=== PATIENT | female | born 1985 | race Caucasian/White ===

== ENCOUNTER 2017-01-30 15:38 | Emergency (ER) | payer SELFPAY ==
[2017-01-30] MEDS ORDERED: MAG HYDROX/AL HYDROX/SIMETH SUSP 30 ML UDCUP PO ONE (17:30)
[2017-01-30] MEDS ORDERED: METOCLOPRAMIDE HCL ORAL SOLN 10 MG/10 ML UDCUP PO ONE (17:30)
[2017-01-30] MEDS ORDERED: LIDOCAINE 2% VISCOUS SOLN 20 ML UDCUP PO ONE (17:30)
--- NOTE | 2017-01-30 17:31 | ER Document Report ---
ED General - General Chief Complaint: Rib Pain Stated Complaint: LEFT RIB PAIN Mode of Arrival: Ambulatory Information source: Patient Notes: 32-year-old female presents with complaints of left upper quadrant abdominal pain worsened after eating. Patient denies any fevers or chills admits to mild nausea. Patient does not admit to any shortness of breath or chest pain, denies any pain with movement TRAVEL OUTSIDE OF THE [place] IN LAST 30 DAYS: No - HPI Onset: Just prior to arrival Onset/Duration: Sudden Quality of pain: Sharp Severity: Mild Pain Level: 1 Associated symptoms: Nausea Exacerbated by: Food Relieved by: Denies Similar symptoms previously: No Recently seen / treated by doctor: No - patient has history of gastric reflux - Related Data Allergies/Adverse Reactions: azithromycin [From Zithromax Z-Rigo] Allergy (Verified 01/30/17 16:06) Past Medical History - Social History Smoking Status: Never Smoker Cigarette use (# per day): No Chew tobacco use (# tins/day): No Smoking Education Provided: No Family History: Reviewed & Not Pertinent Renal/ Medical History: Denies: Hx Peritoneal Dialysis Psychiatric Medical History: Reports: Hx Anxiety - Immunizations Hx Diphtheria, Pertussis, Tetanus Vaccination: Yes Review of Systems - Review of Systems Notes: REVIEW OF SYSTEMS: CONSTITUTIONAL : Denies fever, chills, or sweats. Denies recent illness. EENT: Denies eye, ear, throat, or mouth pain or symptoms. Denies nasal or sinus congestion or discharge. Denies throat, tongue, or mouth swelling or difficulty swallowing. CARDIOVASCULAR: Denies chest pain. Denies palpitations or racing or irregular heart beat. Denies ankle edema. RESPIRATORY: Denies cough, cold, or chest congestion. Denies shortness of breath, difficulty breathing, or wheezing. GASTROINTESTINAL: Admits to abdominal pain left upper quadrant GENITOURINARY: Denies difficulty urinating, painful urination, burning, frequency, blood in urine, or discharge. FEMALE GENITOURINARY: Denies vaginal bleeding, heavy or abnormal periods, irregular periods. Denies vaginal discharge or odor. MUSCULOSKELETAL: Denies back or neck pain or stiffness. Denies joint pain or swelling. SKIN: Denies rash, lesions or sores. HEMATOLOGIC : Denies easy bruising or bleeding. LYMPHATIC: Denies swollen, enlarged glands. NEUROLOGICAL: Denies confusion or altered mental status. Denies passing out or loss of consciousness. Denies dizziness or lightheadedness. Denies headache. Denies weakness or paralysis or loss of use of either side. Denies problems with gait or speech. Denies sensory loss, numbness, or tingling. Denies seizures. PSYCHIATRIC: Denies anxiety or stress. Denies depression, suicidal ideation, or homicidal ideation. ALL OTHER SYSTEMS REVIEWED AND NEGATIVE. Dictation was performed using [employer] voice recognition software \ PHYSICAL EXAMINATION: GENERAL: Well-appearing, well-nourished and in no acute distress. HEAD: Atraumatic, normocephalic. EYES: Pupils equal round and reactive to light, extraocular movements intact, conjunctiva are normal. ENT: Nares patent, oropharynx clear without exudates. Moist mucous membranes. NECK: Normal range of motion, supple without lymphadenopathy LUNGS: Breath sounds clear to auscultation bilaterally and equal. No wheezes rales or rhonchi. HEART: Regular rate and rhythm without murmurs ABDOMEN: Soft, minimally tender in left upper quadrant on deep palpation no rebound or guarding. Female : deferred Musculoskeletal: Normal range of motion, no pitting or edema. No cyanosis. NEUROLOGICAL: Cranial nerves grossly intact. Normal speech, normal gait. Normal sensory, motor exams PSYCH: Normal mood, normal affect. SKIN: Warm, Dry, normal turgor, no rashes or lesions noted. Course - Re-evaluation Re-evalutation: 01/30/17 17:32 Patient has probable gastric reflux, GI cocktail ordered lab work pending 01/30/17 19:20 Given the pain is reproducible on palpation I do not believe this is cardiac or pulmonary in nature. Patient otherwise well-appearing in no distress vital signs are stable I will discharge home with GI follow-up After performing a Medical Screening Examination, I estimate there is LOW risk for ACUTE APPENDICITIS, BOWEL OBSTRUCTION, ACUTE CHOLECYSTITIS, PERFORATED DIVERTICULITIS, INCARCERATED HERNIA, PANCREATITIS, PELVIC INFLAMMATORY DISEASE, PERFORATED ULCER, ECTOPIC , or TUBO-OVARIAN ABSCESS, thus I consider the discharge disposition reasonable. Also, there is no evidence or peritonitis , sepsis, or toxicity. I have reevaluated this patient multiple times and no significant life threatening changes are noted. The patient and I have discussed the diagnosis and risks, and we agree with discharging home with close follow-up with the understanding that symptoms and presentations can change. We also discussed returning to the Emergency Department immediately if new or worsening symptoms occur. We have discussed the symptoms which are most concerning (e.g., bloody stool, fever, changing or worsening pain, vomiting) that necessitate immediate return. - Laboratory Result Diagrams: 01/30/17 17:48 01/30/17 17:48 Laboratory results interpreted by me: 01/30/17 01/30/17 17:48 17:48 Total Protein 8.4 H Urine Urobilinogen 2.0 H Ur Leukocyte Esterase SMALL H Discharge - Discharge Clinical Impression: Left upper quadrant abdominal pain of unknown etiology Condition: Stable Disposition: HOME, SELF-CARE Instructions: Abdominal Pain ([facility]) Prescriptions: Famotidine [Pepcid 20 mg Tablet] 20 mg PO DAILY #30 tablet Hydrocodone/Acetaminophen [[place] 5-325 mg Tablet] 1 tab PO Q6 #14 tablet Referrals: REJI HENDERSON MD [ACTIVE STAFF] - Follow up in 3-5 days
[2017-01-30 18:17] LABS: ABSOLUTE LYMPHOCYTES (AUTO) 1.7 10^3/uL (0.5-4.7); ABSOLUTE MONOCYTES (AUTO) 0.6 10^3/uL (0.1-1.4); ABSOLUTE NEUT (AUTO) 5.2 10^3/uL (1.7-8.2); BASOPHILS % (AUTO) 0.6 % (0-2); EOSINOPHILS % (AUTO) 0.3 % (0-6); HEMATOCRIT 41.4 % (36.0-47.0); HEMOGLOBIN 13.9 g/dL (12.0-15.5); HGB HCT DIFFERENCE 0.3; LYMPHOCYTES % (AUTO) 22.5 % (13-45); MEAN CORPUSCULAR HEMOGLOBIN 29.1 pg (27.0-33.4); MEAN CORPUSCULAR HGB CONC 33.4 g/dL (32.0-36.0); MEAN CORPUSCULAR VOLUME 87 fl (80-97); MONOCYTES % (AUTO) 7.8 % (3-13); RED BLOOD COUNT 4.76 10^6/uL (3.72-5.28); RED CELL DISTRIBUTION WIDTH 12.9 % (11.5-14.0); SEGMENTED NEUTROPHILS % (AUTO) 68.8 % (42-78); WHITE BLOOD COUNT 7.6 10^3/uL (4.0-10.5)
[2017-01-30 18:19] LABS: APPEARANCE,URINE CLEAR; BILIRUBIN,URINE NEGATIVE (NEGATIVE); GLUCOSE, URINE NEGATIVE (NEGATIVE); KETONES,URINE NEGATIVE (NEGATIVE); LEUKOCYTE ESTERASE,URINE SMALL (NEGATIVE); NITRITE,URINE NEGATIVE (NEGATIVE); PROTEIN,URINE NEGATIVE (NEGATIVE); URINE SPECIFIC GRAVITY 1.014
[2017-01-30 18:37] LABS: ALANINE AMINOTRANSFERASE 29 U/L (9-52); ALBUMIN 4.8 g/dL (3.5-5.0); ALKALINE PHOSPHATASE 78 U/L (38-126); ANION GAP 14 (5-19); ASPARTATE AMINO TRANSFERASE 22 U/L (14-36); BILIRUBIN,DIRECT 0.3 mg/dL (0.0-0.4); BILIRUBIN,TOTAL 0.7 mg/dL (0.2-1.3); BLOOD UREA NITROGEN 10 mg/dL (7-20); CARBON DIOXIDE 25 mmol/L (22-30); CHLORIDE 104 mmol/L (98-107); GLUCOSE 94 mg/dL (75-110); LIPASE 87.1 U/L (23-300); POTASSIUM 4.1 mmol/L (3.6-5.0); SODIUM 142.7 mmol/L (137-145); TOTAL PROTEIN 8.4 g/dL (6.3-8.2)
[2017-01-30 19:25] VITALS: BP 145/94
== END 2017-01-30 19:28 | disposition home or self-care (01) ==
LOC: ER 15:38
DX: R10.12 Left upper quadrant pain (principal); R07.81 Pleurodynia; R11.0 Nausea; Z88.3 Allergy status to other anti-infective agents
CPT/HCPCS: 99283; 36415; 83690; 85025; 81025; 80053; 81001; J3490

== ENCOUNTER → 2017-11-14 | Outpatient (CLI) | payer MEDICAID ==
--- NOTE | 2017-11-14 09:01 | RADIOLOGY REPORT (SQ) ---
EXAM DESCRIPTION: U/S ABDOMEN LIMITED W/O DOP COMPLETED DATE/TIME: 11/14/2017 8:45 am REASON FOR STUDY: LUQ PAIN (R10.12) R10.12 LEFT UPPER QUADRANT PAIN COMPARISON: None. TECHNIQUE: Dynamic and static grayscale images acquired of the abdomen and recorded on PACS. Additio nal selected color Doppler and spectral images recorded. LIMITATIONS: None. FINDINGS: LEFT KIDNEY: Left kidney is visualized measuring 11.5 cm in length. 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 No hydronephrosis identified. SPLEEN: The spleen measures 9.6 cm in length. Spleen demonstrates normal echogenicity. MISCELLANEOUS: In region of patient's point tenderness there is only active bowel identified. IMPRESSION: NORMAL LEFT UPPER QUADRANT ULTRASOUND. TECHNICAL DOCUMENTATION: JOB ID: [id number] [employer]- All Rights Reserved
== END ==
LOC: RAD 08:15
PROVIDERS: ATTEND Physician Assistant
DX: R10.12 Left upper quadrant pain (principal)
CPT/HCPCS: 76705

== ENCOUNTER → 2017-12-04 | Outpatient (CLI) | payer MEDICAID ==
--- NOTE | 2017-12-04 12:43 | RADIOLOGY REPORT (SQ) ---
EXAM DESCRIPTION: U/S NON-OB PELVIS TV W/O DOP COMPLETED DATE/TIME: 12/04/2017 10:27 am REASON FOR STUDY: N94.10 UNSPECIFIED DYSPAREUNIA N94.10 UNSPECIFIED DYSPAREUNIA COMPARISON: None. TECHNIQUE: Dynamic and static grayscale images acquired of the pelvis via transvaginal approach and recorded on PACS. Additional selected color Doppler and spectral images recorded. LIMITATIONS: None. FINDINGS: UTERUS: Contour normal. No mass. ENDOMETRIAL STRIPE: Node thickening. IUD in place. CERVIX: No nabothian cysts. RIGHT OVARY: No abnormal masses. RIGHT OVARY DOPPLER: Normal arterial vascular flow without evidence for torsion. LEFT OVARY: 2 cm cyst. LEFT OVARY DOPPLER: Normal arterial vascular flow without evidence for torsion. FREE FLUID: None noted. OTHER: No other significant finding. MEASUREMENTS: UTERUS: 8.4 x 5.4 x 4.4 cm ENDOMETRIAL STRIPE: IUD in position. RIGHT OVARY: 2.4 x 1.41.5 cm LEFT OVARY: 3.6 x 2.7 x 3.2 cm IMPRESSION: IUD in expected location. 2 cm left ovarian cyst. TECHNICAL DOCUMENTATION: JOB ID: [id number] [employer]- All Rights Reserved Reading location - IP/workstation name: [email or web address]
== END ==
LOC: RAD 13:41
PROVIDERS: ATTEND Physician Assistant
DX: N94.10 Unspecified dyspareunia (principal); N83.202 Unspecified ovarian cyst, left side; Z97.5 Presence of (intrauterine) contraceptive device
CPT/HCPCS: 76830

== ENCOUNTER → 2019-06-19 | Outpatient (CLI) | payer MEDICAID ==
--- NOTE | 2019-06-19 20:57 | XCELERA REPORT ---
[address] [address] Transthoracic Echocardiogram Report Name: APPLE STEWART Age: 34 yrs Gender: Female : 1985 Patient Status: Outpatient Patient Location: RAD Study Date: 06/19/2019 10:32 AM Height: 62 in Weight: 175 lb BSA: 1.8 m2 Procedure: A two-dimensional transthoracic echocardiogram with color flow and Doppler was performed. Study Quality: Fair. Reason For Study: PRIMARY HYPERTENSION History: PRIMARY HYPERTENSION. Ordering Physician: ABIODUN FLOOD Performed By: Dora Peters Interpretation Summary The left ventricle is normal in size. There is normal left ventricular wall thickness. LV EF is 65% Left ventricular systolic function is normal. Doppler measurements suggest normal left ventricular diastolic function The left ventricular wall motion is normal. There is no thrombus. There is no ventricular septal defect visualized. The right ventricle is normal in size and function. The right ventricular apex is not well visualized. The right atrium is normal. The left atrial size is normal. The interatrial septum is intact with no evidence for an atrial septal defect. There is no Doppler evidence for an interatrial shunt There is no evidence of mitral valve prolapse. There is no vegetation seen on the mitral valve. There is no mitral valve stenosis. There is no mitral regurgitation noted. There is no aortic valvular vegetation. There is no aortic valve stenosis There is no LVOT obstruction. No aortic regurgitation is present. There is no tricuspid stenosis. No tricuspid regurgitation. Unable to calculate RVSP due to lack of TR jet. There is no pulmonic valvular stenosis. There is a trace amount of pulmonic regurgitation The aortic root is normal size. The inferior vena cava appeared normal and decreased > 50% with respiration (RAP 5-10 mmHg) There is no pericardial effusion. MMode/2D Measurements & Calculations RVDd: 2.9 cm LVIDd: 4.4 cm FS: 30.3 % Ao root diam: 2.5 cm IVSd: 0.76 cm LVIDs: 3.1 cm EDV(Teich): Ao root area: LVPWd: 0.82 cm 87.2 ml 5.1 cm2 ESV(Teich): 36.7 ml EF(Teich): 58.0 % EDV(MOD-sp4): SV(MOD-sp4): 94.4 ml 60.9 ml ESV(MOD-sp4): 33.5 ml EF(MOD-sp4): 64.5 % Doppler Measurements & Calculations Ao V2 max: LV V1 max PG: PA V2 max: Pulm Sys Rito: 131.1 cm/sec 5.1 mmHg 117.9 cm/sec 55.7 cm/sec Ao max PG: LV V1 max: PA max PG: Pulm Mccann Rito: 6.9 mmHg 113.3 cm/sec 5.6 mmHg 34.6 cm/sec Pulm A Revs Rito: 27.4 cm/sec Pulm A Revs Dur: 0.08 sec Pulm S/D: 1.6 Left Ventricle The left ventricle is normal in size. There is normal left ventricular wall thickness. LV EF is 65%. Left ventricular systolic function is normal. Doppler measurements suggest normal left ventricular diastolic function. The left ventricular wall motion is normal. There is no thrombus. There is no ventricular septal defect visualized. Right Ventricle The right ventricle is normal in size and function. The right ventricular apex is not well visualized. Atria The right atrium is normal. The left atrial size is normal. The interatrial septum is intact with no evidence for an atrial septal defect. There is no Doppler evidence for an interatrial shunt. Mitral Valve There is no evidence of mitral valve prolapse. There is no vegetation seen on the mitral valve. There is no mitral valve stenosis. There is no mitral regurgitation noted. Aortic Valve There is no aortic valvular vegetation. There is no aortic valve stenosis. There is no LVOT obstruction. No aortic regurgitation is present. Tricuspid Valve There is no tricuspid stenosis. No tricuspid regurgitation. Unable to calculate RVSP due to lack of TR jet. Pulmonic Valve There is no pulmonic valvular stenosis. There is a trace amount of pulmonic regurgitation. Great Vessels The aortic root is normal size. The inferior vena cava appeared normal and decreased > 50% with respiration (RAP 5-10 mmHg). Effusions There is no pericardial effusion. : ABIODUN FLOOD Lakshmi
== END ==
LOC: RAD 10:17
PROVIDERS: ATTEND Physician Assistant
DX: I10 Essential (primary) hypertension (principal); I47.1 Supraventricular tachycardia
CPT/HCPCS: 93306

== ENCOUNTER 2020-06-01 22:27 | Emergency (ER) | payer MEDICAID ==
--- NOTE | 2020-06-01 23:13 | ER Document Report ---
ED Medical Screen (RME) - General Chief Complaint: Vomiting/Diarrhea Stated Complaint: VOMITING,DIARRHEA Primary Care Provider: DARRELL BELCHER PA-C [Primary Care Provider] - Follow up as needed Notes: Patient is a G2, P1 35-year-old white female at about 26 weeks gestation who presents the emergency department the chief complaint of upper abdominal discomfort. States that the cramping sensation. She states it was followed by nausea, generalized weakness and feeling just ill. States she is had no problems throughout . Denies any vaginal bleeding or discharge. Denies any urinary complaints. States she just has some upper abdominal cramping. No fevers chills or night sweats. I have treated and performed a rapid initial assessment of this patient. A comprehensive ED assessment and evaluation of the patient, analysis of test results and completion of medical decision making process will be conducted by additional ED providers. PHYSICAL EXAMINATION: GENERAL: Well-appearing, well-nourished and in no acute distress. A&Ox4. Answers questions appropriately. TRAVEL OUTSIDE OF THE [place] IN LAST 30 DAYS: No - Related Data Allergies/Adverse Reactions: azithromycin [From Zithromax Z-Rigo] Allergy (Verified 06/01/20 23:11) Past Medical History Renal/ Medical History: Denies: Hx Peritoneal Dialysis Psychiatric Medical History: Reports: Hx Anxiety - Immunizations Hx Diphtheria, Pertussis, Tetanus Vaccination: Yes Physical Exam - Vital signs Vitals: Temp Pulse Resp BP Pulse Ox 97.8 F 129 H 16 143/87 H 99 06/01/20 22:40 06/01/20 22:40 06/01/20 22:40 06/01/20 22:40 06/01/20 22:40 Course - Vital Signs Vital signs: Temp Pulse Resp BP Pulse Ox 97.8 F 129 H 16 143/87 H 99 06/01/20 22:40 06/01/20 22:40 06/01/20 22:40 06/01/20 22:40 06/01/20 22:40 Doctor's Discharge - Discharge Referrals: DARRELL BELCHER PA-C [Primary Care Provider] - Follow up as needed
[2020-06-02 00:17] LABS: ABSOLUTE LYMPHOCYTES (AUTO) 1.9 10^3/uL (0.5-4.7); ABSOLUTE MONOCYTES (AUTO) 0.7 10^3/uL (0.1-1.4); ABSOLUTE NEUT (AUTO) 12.9 10^3/uL (1.7-8.2); BASOPHILS % (AUTO) 0.3 % (0-2); EOSINOPHILS % (AUTO) 0.1 % (0-6); HEMATOCRIT 38.9 % (36.0-47.0); HEMOGLOBIN 13.1 g/dL (12.0-15.5); LYMPHOCYTES % (AUTO) 12.1 % (13-45); MEAN CORPUSCULAR HEMOGLOBIN 30.7 pg (27.0-33.4); MEAN CORPUSCULAR HGB CONC 33.7 g/dL (32.0-36.0); MEAN CORPUSCULAR VOLUME 91 fl (80-97); MONOCYTES % (AUTO) 4.7 % (3-13); PLATELET COUNT 312 10^3/uL (150-450); RED BLOOD COUNT 4.27 10^6/uL (3.72-5.28); RED CELL DISTRIBUTION WIDTH 14.1 % (11.5-14.0); SEGMENTED NEUTROPHILS % (AUTO) 82.8 % (42-78); TOTAL CELLS COUNTED % (AUTO) 100 %; WHITE BLOOD COUNT 15.6 10^3/uL (4.0-10.5)
[2020-06-02 00:45] LABS: ALBUMIN 3.6 g/dL (3.5-5.0); ALKALINE PHOSPHATASE 80 U/L (38-126); ANION GAP 8 (5-19); ASPARTATE AMINO TRANSFERASE 19 U/L (14-36); BILIRUBIN,DIRECT 0.2 mg/dL (0.0-0.4); BILIRUBIN,TOTAL 0.4 mg/dL (0.2-1.3); BLOOD UREA NITROGEN 10 mg/dL (7-20); CALCIUM 9.8 mg/dL (8.4-10.2); CARBON DIOXIDE 20 mmol/L (22-30); CHLORIDE 106 mmol/L (98-107); GLUCOSE 107 mg/dL (75-110); POTASSIUM 3.9 mmol/L (3.6-5.0)
[2020-06-02 01:03] LABS: APPEARANCE,URINE CLOUDY; BILIRUBIN,URINE SMALL (NEGATIVE); CALCIUM OXALATE CRYSTALS,URINE TOO NUMEROUS TO CNT /HPF; GLUCOSE, URINE NEGATIVE (NEGATIVE); KETONES,URINE TRACE mg/dL (NEGATIVE); PROTEIN,URINE 100 mg/dL (NEGATIVE); URINE SPECIFIC GRAVITY 1.031
[2020-06-02 01:05] LABS: COLOR,URINE DARK YELLOW
[2020-06-02 04:41] VITALS: BP 132/84
== END 2020-06-02 06:23 | disposition left against medical advice (07) ==
LOC: ER 22:27
DX: Z53.20 Procedure and treatment not carried out because of patient's decision for unspecified reasons (principal); O21.9 Vomiting of pregnancy, unspecified; O26.892 Other specified pregnancy related conditions, second trimester; R53.1 Weakness; R10.10 Upper abdominal pain, unspecified; Z3A.26 26 weeks gestation of pregnancy
CPT/HCPCS: 36415; 80053; 81001; 83690; 84702; 85025; 99281

== ENCOUNTER 2020-08-31 11:01 | Outpatient (CLI) | payer MEDICAID ==
--- NOTE | 2020-08-31 15:12 | RADIOLOGY REPORT (SQ) ---
EXAM DESCRIPTION: U/S PROFILE W/O STRESS IMAGES COMPLETED DATE/TIME: 08/31/2020 2:59 pm REASON FOR STUDY: decreased movment at 38 weeks COMPARISON: None. TECHNIQUE: Limited real-scale realtime and static images of the fetus to measure specified parameter s. LIMITATIONS: None. FINDINGS: HEART RATE: 150 beats per minute. LOWELL: 15.6 cm. LVP: 9.3 x 5.7 cm. BREATHING MOVEMENT: 2 points. MOVEMENT: 0 points. POSTURE AND TONE: 2 points. QUALITATIVE LOWELL: 2 points. OTHER: No other significant finding. IMPRESSION: BIOPHYSICAL PROFILE: 03/16. Trimester of : Third - 28 weeks to delivery COMMENT: BREATHING MOVEMENTS: 2 POINTS: PRESENT 0 POINTS: ABSENT MOTION: 2 POINTS: PRESENT 0 POINTS: ABSENT TONE: 2 POINTS: PRESENT 0 POINTS: ABSENT AMNIOTIC FLUID VOLUME: 2 POINTS: LARGEST POCKET GREATER THAN 2 CM DEPTH. 0 POINTS: NO POCKET OF 2 CM. TECHNICAL DOCUMENTATION: JOB ID: [id number] 2010 [employer]- All Rights Reserved Reading location - IP/workstation name: [email or web address]
== END 2020-08-31 15:20 | disposition home or self-care (01) ==
LOC: LC 11:01
PROVIDERS: ATTEND Obstetrics & Gynecology
DX: O36.8130 Decreased fetal movements, third trimester, not applicable or unspecified (principal); Z3A.38 38 weeks gestation of pregnancy; Z88.1 Allergy status to other antibiotic agents
CPT/HCPCS: 76819

== ENCOUNTER 2020-09-10 10:31 | Inpatient (IN) | payer MEDICAID ==
[2020-09-10 11:22] LABS: APPEARANCE,URINE SLIGHTLY-CLOUDY; BILIRUBIN,URINE NEGATIVE (NEGATIVE); COLOR,URINE YELLOW; GLUCOSE, URINE NEGATIVE (NEGATIVE); KETONES,URINE NEGATIVE (NEGATIVE); LEUKOCYTE ESTERASE,URINE LARGE (NEGATIVE); NITRITE,URINE NEGATIVE (NEGATIVE); PROTEIN,URINE NEGATIVE (NEGATIVE); URINE SPECIFIC GRAVITY 1.011; UROBILINOGEN,URINE NEGATIVE mg/dL (<2.0)
[2020-09-10 11:42] LABS: URINE AMPHETAMINES SCREEN NEGATIVE; URINE BARBITURATES SCREEN NEGATIVE; URINE BENZODIAZEPINES SCREEN NEGATIVE; URINE COCAINE SCREEN NEGATIVE; URINE MARIJUANA (THC) SCREEN NEGATIVE; URINE METHADONE SCREEN NEGATIVE; URINE PHENCYCLIDINE SCREEN NEGATIVE
[2020-09-10 11:46] LABS: UR PRO/CREAT RATIO RESULT 0.2 mg/mg (0.0-0.2); URINE CREATININE 50.7 mg/dL (16-327); URINE PROTEIN 10.7 mg/dL (<12)
--- NOTE | 2020-09-10 11:46 | Admission Physical ---
Datetime Report Generated by CPN: 09/10/2020 11:46 CURRENT ADMISSION Chief Complaint: Sent from OB Office for Evaluation and Treatment - Please Specify Indication for Induction: Gestational HTN Admit Impression : Term, Intrauterine ; No Active Labor Admit Plan: Initiate Labor Induction Protocol Admit Plan- Other: +GBS ALLERGIES Medication Allergies: Yes Medication Allergies: azithromycin (08/31/2020) Latex: No Latex Allergies Food Allergies: None Environmental Allergies: None OBSTETRICAL HISTORY : 2 Para: 1 Term: 1 : 0 SAB: 0 IAB: 0 Ectopic: 0 Livin Cesareans: 0 VBACs: 0 Multiple Births: 0 Gestational Diabetes: No Rh Sensitization: No Incompetent Cervix: No DICK: No Infertility: No ART Treatment: No Uterine Anomaly: No IUGR: No Hx Previous C/S: No Macrosomia: No Hx Loss/Stillborn: No PIH: No Hx : No Placenta Previa/Abruption: No Depression/PP Depression: No PTL/PROM: No Post Hemorrhage: No Current Procedures: Ultrasound; NST Obstetrical History Comments: G1- 2006, Vaginal delivery G2- Current SEE RECORDS Alcohol: No Marijuana : No Cocaine: No Other Illicit Drugs: No Cigarettes: Former Smoker. 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: No Heart Disease: No Hosp/Surgery: Yes Autoimmune Disorder: No Anesthetic Complications: No Kidney Disease: No Abnormal Pap Smear: Yes Neuro/Epilepsy: No Psychiatric Disorders: No Other Medical Diseases: No Hepatitis/Liver Disease: No Significant Family History: No Varicosities/Phlebitis: No Trauma/Violence : No Thyroid Dysfunction: No Medical History Comments: Child , LEEP 1.5 years ago INFECTIOUS HISTORY Gonorrhea: No Genital Herpes: Yes Chlamydia: No Tuberculosis: No Syphilis: No Hepatitis: No HIV/AIDS Exposure: No Rash or Viral Illness: No HPV: No Infectious History Comments: Last HSV outbreak was at some point this year. Pt unsure of date PHYSICAL EXAM General: Normal HEENT: Deferred Neurologic: Normal Thyroid: Deferred Heart: Normal Lungs: Normal Breast: Deferred Back: Deferred Abdomen: Normal Genitourinary Exam: Deferred Extremities: Deferred DTRs: Normal Pelvic Type: Not Done Physical Exam Comments: cervix 3/90/0 at [facility] Vital Signs: Reviewed MEMBRANES Membranes: Intact FETUS A FHR- Baseline: 150 Variability: Moderate 6-25bpm Accelerations: 15X15 Decelerations: None FHR Category: Category I Admit Comment: 40.1 sent from [facility] today with bps elevated. GBS + denies h/a, vision changes DTRs normal Plan IOL, Dr. Eric attending aware PLANS FOR LABOR AND DELIVERY Pain Management: Medications; Local Feeding Preference: Breast Benefit of Breast Feed Discussed: Yes Circumcision: N/A INFORMED CONSENT Assignment: Lisa Eric MD Signature: with User ID: [email or web address] : with User ID: [email or web address]
[2020-09-10 11:54] LABS: HEMATOCRIT 35.9 % (36.0-47.0); HEMOGLOBIN 12.2 g/dL (12.0-15.5); MEAN CORPUSCULAR HGB CONC 34.1 g/dL (32.0-36.0); MEAN CORPUSCULAR VOLUME 91 fl (80-97); PLATELET COUNT 265 10^3/uL (150-450); RED BLOOD COUNT 3.95 10^6/uL (3.72-5.28); RED CELL DISTRIBUTION WIDTH 14.2 % (11.5-14.0); WHITE BLOOD COUNT 9.2 10^3/uL (4.0-10.5)
[2020-09-10] MEDS ORDERED: RINGERS SOLUTION,LACTATED 1,000 ML IV ONE (12:11)
[2020-09-10] MEDS ORDERED: RINGERS SOLUTION,LACTATED 1,000 ML IV PRN (12:11)
[2020-09-10 12:17] LABS: ALBUMIN 3.8 g/dL (3.5-5.0); ALKALINE PHOSPHATASE 161 U/L (38-126); ANION GAP 7 (5-19); ASPARTATE AMINO TRANSFERASE 21 U/L (14-36); BILIRUBIN,DIRECT 0.2 mg/dL (0.0-0.4); BILIRUBIN,TOTAL 0.5 mg/dL (0.2-1.3); BLOOD UREA NITROGEN 7 mg/dL (7-20); CALCIUM 9.5 mg/dL (8.4-10.2); CARBON DIOXIDE 24 mmol/L (22-30); CHLORIDE 105 mmol/L (98-107); GLUCOSE 85 mg/dL (75-110); POTASSIUM 4.3 mmol/L (3.6-5.0); TOTAL PROTEIN 7.6 g/dL (6.3-8.2); URIC ACID 3.9 mg/dL (2.5-6.2)
[2020-09-10] MEDS ORDERED: PENICILLIN G POTASSIUM 5,000,000 UNIT in DEXTROSE 5%-WATER 100 ML IV ONE (12:17)
[2020-09-10] MEDS ORDERED: LIDOCAINE 1% INJ-PF (10 MG/ML) 30 ML SDV ONE (12:25)
[2020-09-10] MEDS ORDERED: OXYTOCIN/0.9 % SODIUM CHLORIDE 30 UNIT/500 ML RTUINJ ONE (12:25)
[2020-09-10] MEDS ORDERED: MISOPROSTOL 0.2 MG TABLET ONE (12:25)
[2020-09-10] MEDS ORDERED: OXYTOCIN 10 UNIT/ML VIAL ONE (12:25)
[2020-09-10] MEDS ORDERED: PENICILLIN G-K 5 MILLION UNIT VIAL ONE (12:26)
[2020-09-10] MEDS ORDERED: FAMOTIDINE 20 MG TABLET ONE (14:07)
[2020-09-10] MEDS ORDERED: MAGNESIUM SULFATE 0 GM/0 ML RTUINJ IV ONE (14:25)
[2020-09-10] MEDS: FAMOTIDINE 20 MG TABLET PO SCH ×2 (14:49→22:15)
[2020-09-10] MEDS ORDERED: OXYTOCIN/0.9 % SODIUM CHLORIDE 30 UNIT/500 ML RTUINJ IV PRN (14:51)
[2020-09-10] MEDS: PENICILLIN G POTASSIUM 2,500,000 UNIT in DEXTROSE 5%-WATER 50 ML IV SCH ×2 (20:58→20:59)
[2020-09-11] MEDS ORDERED: MISOPROSTOL 0.1 MG TABLET ONE ×2 (00:03→04:10)
[2020-09-11] MEDS: PENICILLIN G POTASSIUM 2,500,000 UNIT in DEXTROSE 5%-WATER 50 ML IV SCH ×3 (00:54→08:59)
[2020-09-11] MEDS ORDERED: MAG HYDROX/AL HYDROX/SIMETH SUSP 30 ML UDCUP ONE (02:16)
[2020-09-11] MEDS ORDERED: MAG HYDROX/AL HYDROX/SIMETH SUSP 30 ML UDCUP PO ONE (02:45)
[2020-09-11] MEDS ORDERED: EPHEDRINE SULFATE INJ 50 MG/1 ML AMPULE ONE (10:39)
[2020-09-11] MEDS ORDERED: FENTANYL/BUPIVACAINE/NS/PF 300 MCG/150 ML RTUINJ EPI ONE (10:39)
[2020-09-11] MEDS ORDERED: ROPIVACAINE HCL 0.2% INJ/PF (2 MG/ML) 20 ML SDV ONE (10:39)
[2020-09-11] MEDS ORDERED: OXYTOCIN/0.9 % SODIUM CHLORIDE 30 UNIT/500 ML RTUINJ ONE (11:10)
[2020-09-11] MEDS ORDERED: PROMETHAZINE HCL INJ 25 MG/1 ML VIAL IV PRN (11:57)
[2020-09-11] MEDS ORDERED: PROMETHAZINE HCL 25 MG TABLET PO PRN (11:57)
[2020-09-11] MEDS ORDERED: DIBUCAINE 1% OINTMENT 28 GM TP PRN (11:57)
[2020-09-11] MEDS ORDERED: NA PHOS,M-B/NA PHOS,DI-BA (ADULT) 133 ML ENEMA PR PRN (11:57)
[2020-09-11] MEDS ORDERED: PROMETHAZINE HCL 25 MG SUPP.RECT PR PRN (11:57)
[2020-09-11] MEDS ORDERED: PSEUDOEPHEDRINE HCL 30 MG TABLET PO PRN (11:57)
[2020-09-11] MEDS ORDERED: OXYTOCIN/0.9 % SODIUM CHLORIDE 30 UNIT/500 ML RTUINJ IV PRN (11:57)
[2020-09-11] MEDS ORDERED: DIPHENHYDRAMINE HCL 25 MG CAPSULE PO PRN (11:57)
[2020-09-11] MEDS ORDERED: MAGNESIUM HYDROXIDE SUSP 30 ML UDCUP PO PRN (11:57)
[2020-09-11] MEDS ORDERED: BENZOCAINE/MENTHOL AEROSOL SPRAY 56 ML TOP PRN (11:57)
[2020-09-11] MEDS ORDERED: GLYCERIN/WITCH HAZEL LEAF 1 EACH MED..WIPE TP PRN (11:57)
[2020-09-11] MEDS ORDERED: DIPH/PERTUSS(ACELL)/TETANUS VAC/PF 0.5 ML SYR (>=10YO) IM PRN (11:57)
[2020-09-11] MEDS ORDERED: MEASLES,MUMPS&RUBELLA VACC/PF 0.5 ML VIAL SUBCUT PRN (11:57)
[2020-09-11] MEDS ORDERED: ACETAMINOPHEN WITH CODEINE #3 TABLET PO PRN ×2 (11:57)
[2020-09-11] MEDS ORDERED: ZOLPIDEM TARTRATE 5 MG TABLET PO PRN (11:57)
[2020-09-11] MEDS ORDERED: ACETAMINOPHEN 650 MG SUPP.RECT PR PRN (11:57)
--- NOTE | 2020-09-11 13:19 | Birth Certificate Data ---
Cert Data Datetime Report Generated by CPN: 09/11/2020 13:18 CERTIFICATE DATA Delivery Provider: Lori Rodriguez MD (09/10/2020 10:56:Paris Girard RN) 47a. Care: Yes (09/10/2020 10:56:Ruben Smith RN) 47b. Date of First Visit: 01/30/2020 00:00 (09/10/2020 10:56:Ruben Smith RN) 47c. Date of Last Visit: 09/10/2020 00:00 (09/10/2020 10:56:Ruben Smith RN) 47d. Number of Visits: 13 (09/10/2020 10:56:Ruben Smith RN) 48a. Number of Prev Live Births: 1 (09/10/2020 10:56:Ruben Smith RN) 48b. Now Livin (09/10/2020 10:56:Ruben Smith RN) 48c. Live Births Now : 0 (09/10/2020 10:56:QS system process) 48d. Date of Last Live : 11/24/2006 00:00 (09/10/2020 10:56:Ruben Smith RN) 48e. Losses: 0 (09/10/2020 10:56:Ruben Smith RN) RISK FACTORS IN THIS 49a. Diabetes: No (09/10/2020 10:56:Ruben Smith RN) 49b. Hypertension: No (09/10/2020 10:56:Ruben Smith RN) 49c. Previous Births: 0 (09/10/2020 10:56:Ruben Smith RN) 49d. Stillborns: No (09/10/2020 10:56:Ruben Smith RN) 49d. IUGR: No (09/10/2020 10:56:Ruben Smith RN) 49e. Infertility Treatment: No (09/10/2020 10:56:Ruben Smith RN) 49f. Previous Cesareans: 0 (09/10/2020 10:56:Ruben Smith RN) Mother's Height 50b. Height Inches: 62 (09/10/2020 11:16:QS system process) Mother's Weight 51a. Pre- Weight (lbs): 199 (09/10/2020 10:56:Ruben Smith RN) 51b. Weight at Delivery (lbs): 227 (09/10/2020 11:16:QS system process) 52. Dt Last Normal Menses Began: 11/23/2019 00:00 (09/10/2020 10:56:Ruben Smith RN) Infections Present/Treated 53a. Gonorrhea: No (09/10/2020 10:56:Ruben Smith RN) Results this Hospital Visit : Negative (09/10/2020 10:56:Vikki Lawton RN) 53b. Syphilis: No (09/10/2020 10:56:Ruben Smith RN) Results this Hospital Visit: NONREACTIVE (09/10/2020 13:59:QS system process) 53c. Chlamydia: No (09/10/2020 10:56:Ruben Smith RN) Results this Hospital Visit: Negative (09/10/2020 10:56:Vikki Lawton RN) 53d. Hepatitis B: No (09/10/2020 10:56:Ruben Smith RN) Results this Hospital Visit: Negative (09/10/2020 10:56:Ruben Smith RN) 53e. Hepatitis C: Negative (09/10/2020 10:56:Vikki Lawton RN) 53h. Mother Tested for HBsAG: Yes (09/10/2020 10:56:Vikki Lawton RN) 53i. Date Tested: 01/30/2020 00:00 (09/10/2020 10:56:Vikki Lawton RN) 53j. Test Result: Negative (09/10/2020 10:56:Ruben Smith RN) Obstetric Procedures 54a, b, c. Obstetric Procedures: Ultrasound; NST (09/10/2020 10:56:Ruben Smith RN) Cigarette Smoking Cigarette Smoking: Former Smoker. [id number] (09/10/2020 10:56:Ruben Smith RN) 55a. 3 Months Before Preg - Ci (09/10/2020 10:56:Ruben Smith RN) 55a. Packs: 0 (09/10/2020 10:56:Ruben Smith RN) 55b. 1st Trimester of Preg- Ci (09/10/2020 10:56:Ruben Smith RN) 55b. Packs: 0 (09/10/2020 10:56:Ruben Smith RN) 55c. 2nd Trimester of Preg- Ci (09/10/2020 10:56:Ruben Smith RN) 55c. Packs: 0 (09/10/2020 10:56:Ruben Smtih RN) 55d. 3rd Trimester of Preg- Ci (09/10/2020 10:56:Ruben Smith RN) 55d. Packs: 0 (09/10/2020 10:56:Ruben Smith RN) Onset of Labor 56a. PROM >12 Hrs: 1.55 (09/10/2020 10:56:QS system process) 56b. Precipitous Labor <3 Hrs: 2 (09/10/2020 10:56:QS system process) 56c. Prolonged Labor > 20 Hrs: 2 (09/10/2020 10:56:QS system process) 57a. Induction of Labor: N/A (09/10/2020 10:56:Mile Miles RN) 57a. Induction of Labor: Cytotec @ (09/11/2020 04:15:Mile Miles RN) 57c. Non-Vertex Presentation A: Vertex (09/10/2020 10:56:Paris Girard RN) 57d. Steroids - Lung Mat: None (09/10/2020 10:56:Paris Girard RN) 57d. Steroids - Lung Mat: Not Applicable (09/10/2020 10:56:Paris Girard RN) 57e. Antibiotics During Labor: 09/11/2020 08:59 (09/10/2020 10:56:Mile Miles RN) 57f. Mat Ch[place] or Temp >100.4: 98.5 (09/10/2020 10:56:Paris Girard RN) 57g. Moderate/Heavy Meconium: Clear (09/11/2020 10:06:Mile Miles RN) 57h. Intolerance of Labor: N/A (09/10/2020 10:56:Paris Girard RN) : N/A (09/10/2020 10:56:Paris Girard RN) 57i. Epidural/Spinal Anesthesia: Epidural (09/10/2020 10:56:Paris Girard RN) Method of Delivery 58a. Forceps - Unsuccessful A: N/A (09/10/2020 10:56:Paris Girard RN) 58b. Vacuum - Unsuccessful A: N/A (09/10/2020 10:56:Paris Girard RN) 58c. Presentation at 58c. Presentation at - A : Vertex (09/10/2020 10:56:Paris Girard RN) 58c. Presentation at - A : N/A (09/10/2020 10:56:Paris Girard RN) 58c. Presentation at - A : Cephalic (09/10/2020 10:56:Paris Girard RN) Final Route and Method of Del 58d. Baby A Route/Delivery: Vaginal (09/10/2020 10:56:Paris Girard RN) 58e. Trial of Labor Attempted: No (09/10/2020 10:56:Paris Girard RN) 58e. Trial of Labor Attempted A: N/A (09/10/2020 10:56:Paris Girard RN) 58e. Trial of Labor Attempted B: N/A (09/10/2020 10:56:Paris [place], RN) Maternal Morbidity 59b. 3rd or 4th Degree Lacs: Perineal; Periurethral (09/10/2020 10:56:Paris Girard RN) 59b. 3rd or 4th Degree Lacs: R labial (09/10/2020 10:56:[place] Girard RN) Birthweight Baby A: 3491 (09/10/2020 10:56:Mile Miles RN) 60a. Pounds : 7 (09/10/2020 10:56:QS system process) 60b. Ounces: 11 (09/10/2020 10:56:QS system process) 61. GA at Delivery Baby A: 40.2 (09/10/2020 10:56:Paris Girard RN) : Full Term- 39- 40.6 Weeks (09/10/2020 10:56:QS system process) 62a. 5 Minute Baby A: 9 (09/10/2020 10:56:QS system process)
--- NOTE | 2020-09-11 13:19 | Delivery Summary ---
Del Sum A-C Datetime Report Generated by CPN: 09/11/2020 13:18 DELIVERY PERSONNEL DELIVERY PERSONNEL: [id number] Delivery Doctor:: Lori Rodriguez MD Labor and Delivery Nurse:: Mile Miles RNpublic space attendant Nurse:: Paris Girard RN Nursery Nurse:: Vikki Lawton RNC MATERNAL INFORMATION Delivery Anesthesia: Epidural Medications After Delivery: Pitocin 30 Units in 500ml NS/D5W Estimated Blood Loss (ml): 150 Maternal Complications: Precipitous Labor (<3hrs) LABOR SUMMARY EDC: 09/09/2020 00:00 No. Babies in Womb: 1 Attempted: No Labor Anesthesia: Epidural LABOR INFORMATION Reason for Induction: Chronic Primary/Essential HTN Onset of Labor: 09/11/2020 09:24 Complete Dilatation: 09/11/2020 11:20 Cervical Ripening Agents: Cytotec @ Oxytocin: N/A Group B Beta Strep: positive Antibiotics # of Doses: 2 Antibiotics Time of Last Dose: 09/11/2020 08:59 Name of Antibiotic Given: PCN Steroids Given: None Reason Steroids Not Administered: Not Applicable MEMBRANES Membranes Rupture Method: Spontaneous Rupture of Membranes: 09/11/2020 10:06 Length of Rupture (hr): 1.55 Amniotic Fluid Color: Clear Amniotic Fluid Amount: Large Amniotic Fluid Odor: Normal STAGES OF LABOR Stage 1 hr: 1 Stage 1 min: 56 Stage 2 hr: 0 Stage 2 min: 19 Stage 3 hr: 0 Stage 3 min: 4 Total Time in Labor hr: 2 Total Time in Labor min: 19 VAGINAL DELIVERY Episiotomy: None Laceration #1: Perineal; Periurethral Laceration Extension #1: First Degree Other Laceration: R labial Laceration Repair: Yes Sponge Count Correct: Yes Sharps Count Correct: Yes CSECTION DELIVERY Primary Indication: N/A Secondary Indication: N/A CSection Incidence: N/A Labor: N/A Elective: N/A CSection Incision: N/A BABY A INFORMATION Delivery Date/Time: 09/11/2020 11:39 Method of Delivery: Vaginal Nurse Controlled Delivery: No Born in Route : No : N/A Forceps: N/A Vacuum Extraction: N/A Shoulder Dystocia : No PRESENTATION/POSITION BABY A Presentation: Cephalic Cephalic Presentation: Vertex Vertex Position: Left Occipital Anterior Breech Presentation: N/A PLACENTA INFORMATION BABY A Placenta Delivery Time : 09/11/2020 11:43 Placenta Method of Delivery: Spontaneous Placenta Status: Delivered SCORES BABY A Heart Rate 1 min: >100 bpm Resp Effort 1 min: Good Cry Reflex Irritability 1 min: Cough or Sneeze or Pulls Away Muscle Tone 1 min: Active Motion Color 1 min: Body [place], Extremities Blue Resuscitation Effort 1 min: Tactile Stimulation SCORE 1 MIN: 9 Heart Rate 5 min: >100 bpm Resp Effort 5 min: Good Cry Reflex Irritability 5 min: Cough or Sneeze or Pulls Away Muscle Tone 5 min: Active Motion Color 5 min: Body [place], Extremities Blue Resuscitation Effort 5 min: N/A SCORE 5 MIN: 9 INFANT INFORMATION BABY A Gestational Age at Delivery: 40.2 Gestational Status: Full Term- 39- 40.6 Weeks Outcome : Liveborn Condition : Stable Sex: Female IDENTIFICATION BABY A Infant Verification Date/Time: 09/11/2020 11:57 ID Band Number: [id number] Mother's Name Verified: Yes Infant RN Verifying Infant: C. Shaji RN; S. Leighann, RNC WEIGHT/LENGTH BABY A Birthweight (gm): 3491 Weight (lb): 7 Weight (oz): 11 Infant Length (in): 20.00 Length (cm): 50.80 CORD INFORMATION BABY A No. Cord Vessels: 3 Nuchal Cord : N/A Cord Blood Taken: Yes-For Storage (Mom's Blood type +) Infant Suction: Mouth ASSESSMENT BABY A Infant Complications: None Physical Findings at Delivery: Within Normal Limits Respirations: Appears Normal Skin to Skin: Yes Reweaver/ALS Called : No Infant Care By: S Leighann RN Transferred To: Remains with Mother BABY B INFORMATION : N/A SIGNATURES : I was personally available for consultation and serving as supervising physician for the [facility].
[2020-09-11] MEDS ORDERED: IBUPROFEN 800 MG TABLET ONE (13:54)
[2020-09-11] MEDS: MISOPROSTOL 0.1 MG TABLET PV SCH (14:24)
--- NOTE | 2020-09-11 15:54 | L&D Progress Notes ---
PROGRESS NOTES Datetime Report Generated by CPN: 09/11/2020 15:53 PROGRESS NOTE Comment: clarification. No prodrome or lesions of HSV on exam prior to delivery. Pt is taking suppressive therapy LAST VAGINAL EXAM-NURSING Nursing Exam Dilitation: 4.0 Nursing Exam Effacement: 90 Nursing Exam Station: -2 Nursing Exam Contractions: with irritability MEMBRANES Membranes: Intact FETUS A : 40.1 SIGNATURE SIGNATURE: [id number];[id number];[id number];[id number] Signature: with User ID: Paige
[2020-09-11] MEDS: IBUPROFEN 800 MG TABLET PO SCH ×4 (16:00→23:11)
--- NOTE | 2020-09-11 16:00 | Warning Signs in Babies ---
VOD Warning Signs Datetime Report Generated by [facility]: 09/11/2020 16:00 VOD#608 -Warning Signs in Babies: Needs to be viewed. (09/10/2020 10:56:Paris Girard RN)
[2020-09-11] MEDS: FAMOTIDINE 20 MG TABLET PO SCH ×2 (17:14→21:10)
[2020-09-11] MEDS: DOCUSATE SODIUM 100 MG CAPSULE PO SCH (18:00)
[2020-09-11] MEDS: FERROUS SULFATE 325 MG TABLET PO SCH (18:00)
[2020-09-12] MEDS: IBUPROFEN 800 MG TABLET PO SCH ×3 (06:21→22:28)
[2020-09-12 07:32] LABS: HEMATOCRIT 31.1 % (36.0-47.0); HEMOGLOBIN 10.7 g/dL (12.0-15.5); MEAN CORPUSCULAR HEMOGLOBIN 31.2 pg (27.0-33.4); MEAN CORPUSCULAR HGB CONC 34.3 g/dL (32.0-36.0); MEAN CORPUSCULAR VOLUME 91 fl (80-97); PLATELET COUNT 209 10^3/uL (150-450); RED BLOOD COUNT 3.42 10^6/uL (3.72-5.28); RED CELL DISTRIBUTION WIDTH 14.1 % (11.5-14.0)
[2020-09-12] MEDS: FAMOTIDINE 20 MG TABLET PO SCH ×3 (10:28→22:28)
[2020-09-12] MEDS: PRENATAL VITAMIN W DHA CAPSULE PO SCH (10:28)
[2020-09-12] MEDS: SENNOSIDES/DOCUSATE 8.6-50 MG 1 EACH TABLET PO SCH (10:28)
[2020-09-12] MEDS: DOCUSATE SODIUM 100 MG CAPSULE PO SCH ×2 (10:28→19:03)
[2020-09-12] MEDS: FERROUS SULFATE 325 MG TABLET PO SCH ×2 (10:28→19:03)
--- NOTE | 2020-09-12 12:21 | PDOC PROGRESS REPORT ---
Subjective-OB Progress Note for:: 09/12/20 Subjective: t doing well, no complaints. States pain is controlled, voiding w/o difficulty, reg diet, light bleeding w/o clots. Physical Exam (OB) Vital Signs: Temp Pulse Resp BP Pulse Ox 97.5 F 79 18 126/82 H 100 09/12/20 07:50 09/12/20 07:30 09/12/20 07:30 09/12/20 07:30 09/12/20 07:30 Intake & Output 09/11/20 09/12/20 09/13/20 06:59 06:59 06:59 Intake Total 1999 400 Balance 1999 400 Weight 102.6 kg - PIH/Pre-Eclampsia Clonus: Negative Headache: Absent Epigastric Pain: No Visual Changes: No - Maternal Morbidity 59. Maternal Morbidity (serious complications experinced by the mother associated with labor and delivery: None of the above - Lochia Lochia Amount: Scant < 10 ml Lochia Color: Rubra/Red - Abdomen Description: Soft Hernia Present: No Fundal Description: Firm, Midline Fundal Height: u/3 - u/4 Objective-Diagnostic Laboratory: 09/12/20 06:47 09/10/20 11:41 09/12/20 06:47 WBC 11.0 H RBC 3.42 L Hgb 10.7 L Hct 31.1 L MCV 91 MCH 31.2 MCHC 34.3 RDW 14.1 H Plt Count 209 Assessment and Plan(PN) - Assessment and Plan (1) Laceration, obstetrical, first degree Is this a current diagnosis for this admission?: Yes (2) Encounter for induction of labor Is this a current diagnosis for this admission?: Yes (3) Vaginal delivery Is this a current diagnosis for this admission?: Yes (4) Gestational hypertension Qualifiers: Trimester: third trimester Qualified Code(s): O13.3 - Gestational [-induced] hypertension without significant proteinuria, third trimester Is this a current diagnosis for this admission?: Yes (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
[2020-09-12 21:46] VITALS: BP 117/62
[2020-09-13] MEDS: IBUPROFEN 800 MG TABLET PO SCH ×2 (06:05→13:32)
[2020-09-13] MEDS: FAMOTIDINE 20 MG TABLET PO SCH ×2 (10:59→11:12)
[2020-09-13] MEDS: SENNOSIDES/DOCUSATE 8.6-50 MG 1 EACH TABLET PO SCH (10:59)
[2020-09-13] MEDS: DOCUSATE SODIUM 100 MG CAPSULE PO SCH (10:59)
[2020-09-13] MEDS: FERROUS SULFATE 325 MG TABLET PO SCH (10:59)
[2020-09-13] MEDS: PRENATAL VITAMIN W DHA CAPSULE PO SCH (10:59)
--- NOTE | 2020-09-13 13:04 | PDOC DISCHARGE SUMMARY ---
Impression - Admit/DC Date/PCP Admission Date/Primary Care Provider: 09/10/20 11:09 DARRELL BELCHER PA-C Discharge Date: 09/13/20 - Discharge Diagnosis (1) Laceration, obstetrical, first degree Is this a current diagnosis for this admission?: Yes (2) Encounter for induction of labor Is this a current diagnosis for this admission?: Yes (3) Vaginal delivery Is this a current diagnosis for this admission?: Yes (4) Gestational hypertension Is this a current diagnosis for this admission?: Yes (5) Genital HSV Is this a current diagnosis for this admission?: Yes - Additional Information Resuscitation Status: Full Code Discharge Diet: Regular Discharge Activity: Balance Activity w/Rest, Pelvic Rest Referrals: DARRELL BELCHER PA-C [Primary Care Provider] - Home Medications: Famotidine [Pepcid 20 mg Tablet] 20 mg PO DAILY #30 tablet 01/30/17 Ferrous Sulfate [Feosol 325 mg Tablet] 325 mg PO DAILY 09/10/20 Loratadine [Claritin 10 mg Tablet] 1 tab PO DAILY 09/10/20 Prenat 115/Iron Fum/Folic/Dss [ 19 Tablet] 1 tab PO DAILY 09/10/20 Valacyclovir HCl [Valtrex 500 mg Tablet] 1 tab PO BID 09/10/20 HPI Gestational Age: 40.2 Reason(s) for Admission: PIH Procedures: NST Intrapartum Procedure(s): Spontaneous Vaginal Delivery Hospital Course 59. Maternal Morbidity (serious complications experinced by the mother associated with labor and delivery: None of the above Results Laboratory Results: WBC 11.0 10^3/uL (4.0-10.5) H 09/12/20 06:47 RBC 3.42 10^6/uL (3.72-5.28) L 09/12/20 06:47 Hgb 10.7 g/dL (12.0-15.5) L 09/12/20 06:47 Hct 31.1 % (36.0-47.0) L 09/12/20 06:47 MCV 91 fl (80-97) 09/12/20 06:47 MCH 31.2 pg (27.0-33.4) 09/12/20 06:47 MCHC 34.3 g/dL (32.0-36.0) 09/12/20 06:47 RDW 14.1 % (11.5-14.0) H 09/12/20 06:47 Plt Count 209 10^3/uL (150-450) 09/12/20 06:47 Sodium 135.7 mmol/L (137-145) L 09/10/20 11:41 Potassium 4.3 mmol/L (3.6-5.0) 09/10/20 11:41 Chloride 105 mmol/L (98-107) 09/10/20 11:41 Carbon Dioxide 24 mmol/L (22-30) 09/10/20 11:41 Anion Gap 7 (5-19) 09/10/20 11:41 BUN 7 mg/dL (7-20) 09/10/20 11:41 Creatinine 0.49 mg/dL (0.52-1.25) L 09/10/20 11:41 Est GFR ( Amer) > 60 (>60) 09/10/20 11:41 Est GFR (MDRD) Non-Af > 60 (>60) 09/10/20 11:41 Glucose 85 mg/dL (75-110) 09/10/20 11:41 Uric Acid 3.9 mg/dL (2.5-6.2) 09/10/20 11:41 Calcium 9.5 mg/dL (8.4-10.2) 09/10/20 11:41 Total Bilirubin 0.5 mg/dL (0.2-1.3) 09/10/20 11:41 Direct Bilirubin 0.2 mg/dL (0.0-0.4) 09/10/20 11:41 Neonat Total Bilirubin Not Reportable 09/10/20 11:41 Neonat Direct Bilirubin Not Reportable 09/10/20 11:41 Neonat Indirect Bili Not Reportable 09/10/20 11:41 AST 21 U/L (14-36) 09/10/20 11:41 ALT 9 U/L (<35) 09/10/20 11:41 Alkaline Phosphatase 161 U/L (38-126) H 09/10/20 11:41 Lactate Dehydrogenase 149 U/L (120-246) 09/10/20 11:41 Total Protein 7.6 g/dL (6.3-8.2) 09/10/20 11:41 Albumin 3.8 g/dL (3.5-5.0) 09/10/20 11:41 Urine Color YELLOW 09/10/20 10:40 Urine Appearance SLIGHTLY-CLOUDY 09/10/20 10:40 Urine pH 7.0 (5.0-9.0) 09/10/20 10:40 Ur Specific [place] 1.011 09/10/20 10:40 Urine Protein NEGATIVE mg/dL (NEGATIVE) 09/10/20 10:40 Urine Glucose (UA) NEGATIVE mg/dL (NEGATIVE) 09/10/20 10:40 Urine Ketones NEGATIVE mg/dL (NEGATIVE) 09/10/20 10:40 Urine Blood SMALL (NEGATIVE) H 09/10/20 10:40 Urine Nitrite NEGATIVE (NEGATIVE) 09/10/20 10:40 Urine Bilirubin NEGATIVE (NEGATIVE) 09/10/20 10:40 Urine Urobilinogen NEGATIVE mg/dL (<2.0) 09/10/20 10:40 Ur Leukocyte Esterase LARGE (NEGATIVE) H 09/10/20 10:40 Urine WBC (Auto) 27 /HPF 09/10/20 10:40 Urine Bacteria (Auto) 1+ /HPF 09/10/20 10:40 Squamous Epi Cells Auto 10 /HPF 09/10/20 10:40 Urine Mucus (Auto) RARE /LPF 09/10/20 10:40 Urine Creatinine 50.7 mg/dL (16-327) 09/10/20 10:40 Protein/Creatinin Ratio 0.2 mg/mg (0.0-0.2) 09/10/20 10:40 Urine Total Protein 10.7 mg/dL (<12) 09/10/20 10:40 Urine Ascorbic Acid NEGATIVE (NEGATIVE) 09/10/20 10:40 Urine Opiates Screen NEGATIVE 09/10/20 10:40 Urine Methadone Screen NEGATIVE 09/10/20 10:40 Ur Barbiturates Screen NEGATIVE 09/10/20 10:40 Ur Phencyclidine Scrn NEGATIVE 09/10/20 10:40 Ur Amphetamines Screen NEGATIVE 09/10/20 10:40 U Benzodiazepines Scrn NEGATIVE 09/10/20 10:40 Urine Cocaine Screen NEGATIVE 09/10/20 10:40 U Marijuana (THC) Screen NEGATIVE 09/10/20 10:40 RPR NONREACTIVE (NONREACTIVE) 09/10/20 13:59 Blood Type A POSITIVE 09/10/20 14:53 Antibody Screen NEGATIVE 09/10/20 14:53 Plan Plan of Treatment: f/u at [facility] 1 wk for BP check Time Spent: Less than 30 Minutes
== END 2020-09-13 15:17 | disposition home or self-care (01) | DRG 806 ==
LOC: LC 10:31 → LR 11:09 → 2S 09-11 16:41
PROVIDERS: ADMIT Obstetrics & Gynecology; ATTEND Obstetrics & Gynecology
PROC: 10E0XZZ Delivery of Products of Conception, External Approach (ICD-10-PCS; principal; 2020-09-11)
PROC: 0HQ9XZZ Repair Perineum Skin, External Approach (ICD-10-PCS; 2020-09-11)
DX: O13.4 Gestational [pregnancy-induced] hypertension without significant proteinuria, complicating childbirth (principal); O98.32 Other infections with a predominantly sexual mode of transmission complicating childbirth; Z37.0 Single live birth; O62.3 Precipitate labor; O70.0 First degree perineal laceration during delivery; Z88.1 Allergy status to other antibiotic agents; Z87.891 Personal history of nicotine dependence; A60.00 Herpesviral infection of urogenital system, unspecified; O99.824 Streptococcus B carrier state complicating childbirth; Z3A.40 40 weeks gestation of pregnancy
CPT/HCPCS: 1967; 36415; 80053; 80307; 81001; 82570; 83615; 84156; 84550; 85027; 86592; 86850; 86900; 86901; 94760; J2540; J2590; J2795; J3010; J3475; J3490; J7060